=== PATIENT | female | born 1990 | race Caucasian/White ===

== ENCOUNTER 2020-02-28 20:39 | Emergency (ER) | payer SELFPAY ==
[~2020-02-28] VITALS: Ht 172.7 cm; Wt 130.6 kg
[2020-02-28 20:46] VITALS: BP 157/96
--- NOTE | 2020-02-28 20:50 | NUR ---
PT AMBULATED TO BED #4
--- NOTE | 2020-02-28 21:31 | NUR ---
29 Y/O FEMALE PRESENTED TO ED C/O LEFT 4TH TOE PAIN X 2 DAYS. PT STATES SHE DIRECTLY DROPPED 5 LB WEIGHT ON LT FOOT. OBSERVED BRUISING ON LT 4TH TOE. PT STATES IT HURTS WHEN SHE MOVES AND WALKS, THROBBING 7/10 , NON RADIATING PAIN. +PEDAL PULSE, DENIES NUMBNESS & TINGLING , +ROM . PT STATES SHE TOOK IBUPROFEN LAST NIGHT W/ RELIEF. PT STATES SHE HAS BEEN ICING AND ELEVATING FOOT TO HELP W/ SWELLING. PT IS WORRIED ABOUT GOING TO WORK TOMORROW D/T NOT BEING ABLE TO WALK WELL. PT RESTING IN BED, LOCKED AND IN LOWEST POSITION, HOB ELEVATED, SIDE RAIL X1. PT A/O X4 , RR EVEN AND UNLABORED. VSS PMH: NONE AX: PCN
--- NOTE | 2020-02-28 22:11 | NUR ---
XRAY AT BEDSIDE.
--- NOTE | 2020-02-28 22:49 | NUR ---
Dr. Miramontes examining patient.
[2020-02-28 23:01] VITALS: BP 154/93
--- NOTE | 2020-02-28 23:01 | NUR ---
Patient discharged with v/s stable. Written and verbal after care instructions given and explained. Patient verbalized understanding. Ambulatory with steady gait. All questions addressed prior to discharge. Advised to follow up with PMD.
== END 2020-02-28 23:01 | disposition home or self-care (01) ==
LOC: MED 20:39
DX: S92.532A Displaced fracture of distal phalanx of left lesser toe(s), initial encounter for closed fracture (principal); Z88.0 Allergy status to penicillin; W20.8XXA Other cause of strike by thrown, projected or falling object, initial encounter; Y93.89 Activity, other specified; Y92.89 Other specified places as the place of occurrence of the external cause; Y99.8 Other external cause status
CPT/HCPCS: 73660; 99283